=== PATIENT | male | born 1960 | race African-American/Black ===

== ENCOUNTER 2017-05-29 11:37 | Emergency (ER) | payer MEDICAID ==
[~2017-05-29] VITALS: Ht 182.9 cm; Wt 64.0 kg
[2017-05-29] MEDS ORDERED: LIDOCAINE HCL 1% 20ML VIAL (Pyxis) INJ INFIL ONE (14:30)
[2017-05-29] MEDS ORDERED: CEPHALEXIN 500MG CAPSULE PO ONE (15:15)
[2017-05-29] MEDS ORDERED: HYDROCODONE/ACETAMINOPHEN 5/325MG TABLET PO ONE (15:15)
[2017-05-29] MEDS ORDERED: SULFAMETHOXAZOLE/TRIMETHOPRIM 800/160MG TABLET PO ONE (15:15)
[2017-05-29 15:19] VITALS: BP 115/81
== END 2017-05-29 15:21 | disposition home or self-care (01) ==
LOC: ER 12:35
DX: L02.414 Cutaneous abscess of left upper limb (principal); I10 Essential (primary) hypertension; E11.9 Type 2 diabetes mellitus without complications; Z87.891 Personal history of nicotine dependence
CPT/HCPCS: 10060; 99284; J3490

== ENCOUNTER 2017-05-31 12:22 | Emergency (ER) | payer MEDICAID ==
[~2017-05-31] VITALS: Ht 182.9 cm; Wt 63.0 kg
[2017-05-31 14:40] VITALS: BP 118/84
== END 2017-05-31 18:00 | disposition left against medical advice (07) ==
LOC: ER 12:22
DX: L02.92 Furuncle, unspecified (principal); R51 Headache; Z53.21 Procedure and treatment not carried out due to patient leaving prior to being seen by health care provider

== ENCOUNTER 2023-12-02 09:55 | Emergency (ER) | payer MEDICAID ==
[~2023-12-02] VITALS: Ht 175.3 cm; Wt 68.0 kg
[~2023-12-02 09:55] MED LIST: DOXY100C5 PO
[2023-12-02 09:57] VITALS: BP 116/72; PULSE 92; RESP 16; TEMP 98.2; O2SAT 99
== END 2023-12-02 11:32 | disposition home or self-care (01) ==
LOC: ER 09:55
DX: M79.10 Myalgia, unspecified site (principal); J45.909 Unspecified asthma, uncomplicated; E11.9 Type 2 diabetes mellitus without complications
CPT/HCPCS: 99283

== ENCOUNTER 2023-12-15 13:18 | Emergency (ER) | payer MEDICAID ==
[~2023-12-15] VITALS: Ht 170.2 cm; Wt 60.0 kg
[2023-12-15 13:35] VITALS: O2SAT 99
[2023-12-15] MEDS ORDERED: MAGNESIUM/ALUMINUM HYDROXIDE/SIMETHICONE 30ML UDC PO STA (13:55)
[2023-12-15 14:25] LABS: BASOPHILS % 0.7 % (0.0-2.0); EOSINOPHILS % 1.9 % (0.0-5.0); HEMATOCRIT. 36.4 % (42.0-52.0); HEMOGLOBIN. 12.8 g/dL (14.0-18.0); LYMPHOCYTES % 38.1 % (20.0-50.0); MEAN CORPUSCULAR HEMOGLOBIN 32.2 pg (28.0-32.0); MEAN CORPUSCULAR HGB CONC 35.3 g/dL (31.0-37.0); MEAN CORPUSCULAR VOLUME 91.1 fL (80.0-94.0); MEAN PLATELET VOLUME 6.3 fl (7.4-10.4); MONOCYTES % 9.6 % (2.0-8.0); NEUTROPHILS % 49.7 % (40.0-76.0); PLATELET 306 x1000/uL (130-400); RED BLOOD CELL COUNT 3.99 mill/uL (4.7-6.1); RED CELL DISTRIBUTION WIDTH 14.4 % (11.6-14.6); WHITE BLOOD COUNT 5.2 x1000/uL (4.5-11.0)
[2023-12-15 14:31] LABS: CHLORIDE 105 mEq/L (98-107); POTASSIUM 3.2 mEq/L (3.5-5.1); SODIUM 138 mEq/L (136-145)
[2023-12-15 14:32] LABS: CARBON DIOXIDE 28 mEq/L (21-32)
[2023-12-15 14:33] LABS: CALCIUM 8.8 mg/dL (8.7-10.4)
[2023-12-15 14:37] LABS: CREATININE 0.9 mg/dL (0.6-1.3); GLUCOSE 94 mg/dL (70-105)
[2023-12-15 14:38] LABS: UREA NITROGEN BLOOD 11 mg/dL (9-23)
[2023-12-15 14:39] LABS: ALANINE AMINOTRANSFERASE 46 IU/L (10-49); ALBUMIN 4.3 g/dL (3.2-4.8); ASPARTATE AMINOTRANSFERASE 73 IU/L (<34)
[2023-12-15 14:40] LABS: BILIRUBIN TOTAL 0.5 mg/dL (0.1-1.0); PROTEIN TOTAL 6.3 g/dL (6.0-8.3)
[2023-12-15 15:36] LABS: ETHANOL BLOOD < 10 mg/dL (<10)
[2023-12-15] MEDS: POTASSIUM CHLORIDE 20MEQ/PACKET PO ONE (17:33)
[2023-12-15] MEDS: MAGNESIUM/ALUMINUM HYDROXIDE/SIMETHICONE 30ML UDC PO NR (17:33)
[2023-12-15 17:38] LABS: CLARITY URINE CLOUDY (CLEAR); COLOR URINE YELLOW (YELLOW); GLUCOSE URINE NEGATIVE (NEGATIVE); KETONES URINE NEGATIVE (NEGATIVE); LEUKOCYTE ESTERASE URINE 3+ (NEGATIVE); NITRITE URINE NEGATIVE (NEGATIVE); OCCULT BLOOD URINE NEGATIVE (NEGATIVE); PROTEIN URINE NEGATIVE (NEGATIVE); SPECIFIC GRAVITY URINE 1.011 (1.005-1.030)
[2023-12-15 17:59] LABS: BACTERIA URINE 3+; RBC URINE NONE SEEN /hpf (0-2); SQUAMOUS EPITHELIAL CELL URINE RARE /lpf (RARE/1+)
[2023-12-15] MEDS ORDERED: NITR100C MT (18:08)
[2023-12-15 18:17] VITALS: BP 148/87; PULSE 94; RESP 18; TEMP 98.7
== END 2023-12-15 18:20 | disposition home or self-care (01) ==
LOC: ER 13:18
DX: R10.30 Lower abdominal pain, unspecified (principal); N39.0 Urinary tract infection, site not specified; E87.6 Hypokalemia; J45.909 Unspecified asthma, uncomplicated; E11.9 Type 2 diabetes mellitus without complications
CPT/HCPCS: 36415; 74176; 80053; 80320; 81003; 83605; 85025; 99284; G0480

== ENCOUNTER 2023-12-27 19:51 | Emergency (ER) | payer MEDICAID ==
[~2023-12-27] VITALS: Ht 177.8 cm; Wt 74.0 kg
[2023-12-27] MEDS: ACETAMINOPHEN 325MG TABLET PO ONE (12:45)
[~2023-12-27 19:51] MED LIST changes: +NITR100C MT
[2023-12-27 20:01] VITALS: BP 126/68; PULSE 84; RESP 18; TEMP 98.2; O2SAT 98
[2023-12-27 20:48] LABS: BASOPHILS % 0.5 % (0.0-2.0); HEMATOCRIT. 36.6 % (42.0-52.0); HEMOGLOBIN. 12.5 g/dL (14.0-18.0); LYMPHOCYTES % 28.9 % (20.0-50.0); MEAN CORPUSCULAR HEMOGLOBIN 31.4 pg (28.0-32.0); MEAN CORPUSCULAR HGB CONC 34.1 g/dL (31.0-37.0); MEAN CORPUSCULAR VOLUME 92.1 fL (80.0-94.0); MEAN PLATELET VOLUME 6.6 fl (7.4-10.4); MONOCYTES % 8.3 % (2.0-8.0); NEUTROPHILS % 61.3 % (40.0-76.0); PLATELET 330 x1000/uL (130-400); RED BLOOD CELL COUNT 3.97 mill/uL (4.7-6.1); RED CELL DISTRIBUTION WIDTH 14.5 % (11.6-14.6); WHITE BLOOD COUNT 7.7 x1000/uL (4.5-11.0)
[2023-12-27 20:52] LABS: CHLORIDE 102 mEq/L (98-107); POTASSIUM 4.3 mEq/L (3.5-5.1); SODIUM 131 mEq/L (136-145)
[2023-12-27 20:53] LABS: CARBON DIOXIDE 26 mEq/L (21-32)
[2023-12-27 20:54] LABS: CALCIUM 9.5 mg/dL (8.7-10.4)
[2023-12-27 20:58] LABS: CREATININE 1.1 mg/dL (0.6-1.3); GLUCOSE 84 mg/dL (70-105); UREA NITROGEN BLOOD 12 mg/dL (9-23)
[2023-12-27 21:00] LABS: ALANINE AMINOTRANSFERASE 79 IU/L (10-49); ALBUMIN 4.6 g/dL (3.2-4.8); ASPARTATE AMINOTRANSFERASE 138 IU/L (<34)
[2023-12-27 21:01] LABS: BILIRUBIN TOTAL 0.8 mg/dL (0.1-1.0); PROTEIN TOTAL 6.9 g/dL (6.0-8.3)
[2023-12-27 23:07] LABS: CLARITY URINE CLEAR (CLEAR); COLOR URINE YELLOW (YELLOW); GLUCOSE URINE NEGATIVE (NEGATIVE); KETONES URINE NEGATIVE (NEGATIVE); LEUKOCYTE ESTERASE URINE NEGATIVE (NEGATIVE); NITRITE URINE NEGATIVE (NEGATIVE); OCCULT BLOOD URINE NEGATIVE (NEGATIVE); PH URINE 6.5 (4.5-8.0); PROTEIN URINE NEGATIVE (NEGATIVE); SPECIFIC GRAVITY URINE 1.007 (1.005-1.030); UROBILINOGEN URINE 0.2 E.U./dL (0.2-1.0)
[2023-12-28] MEDS ORDERED: POLY17PO3 MT (00:25)
== END 2023-12-28 00:51 | disposition home or self-care (01) ==
LOC: ER 19:51
DX: K59.00 Constipation, unspecified (principal); R79.89 Other specified abnormal findings of blood chemistry; E11.9 Type 2 diabetes mellitus without complications; F20.9 Schizophrenia, unspecified; J44.9 Chronic obstructive pulmonary disease, unspecified
CPT/HCPCS: 36415; 74176; 80053; 81003; 85025; 99284

== ENCOUNTER 2024-01-16 10:02 | Emergency (ER) | payer MEDICAID ==
[~2024-01-16] VITALS: Ht 177.8 cm; Wt 64.0 kg
[~2024-01-16 10:02] MED LIST changes: +POLY17PO3 MT
[2024-01-16 10:10] VITALS: O2SAT 99
[2024-01-16 10:39] LABS: BASOPHILS % 0.6 % (0.0-2.0); EOSINOPHILS % 0.7 % (0.0-5.0); HEMATOCRIT. 36.3 % (42.0-52.0); HEMOGLOBIN. 12.9 g/dL (14.0-18.0); LYMPHOCYTES % 31.8 % (20.0-50.0); MEAN CORPUSCULAR HGB CONC 35.5 g/dL (31.0-37.0); MEAN PLATELET VOLUME 6.1 fl (7.4-10.4); MONOCYTES % 7.6 % (2.0-8.0); NEUTROPHILS % 59.3 % (40.0-76.0); PLATELET 486 x1000/uL (130-400); RED BLOOD CELL COUNT 3.91 mill/uL (4.7-6.1); RED CELL DISTRIBUTION WIDTH 14.9 % (11.6-14.6); WHITE BLOOD COUNT 4.9 x1000/uL (4.5-11.0)
[2024-01-16 10:45] LABS: CHLORIDE 107 mEq/L (98-107)
[2024-01-16 10:46] LABS: CARBON DIOXIDE 27 mEq/L (21-32); SODIUM 136 mEq/L (136-145)
[2024-01-16 10:51] LABS: GLUCOSE 99 mg/dL (70-105)
[2024-01-16 10:52] LABS: INR 0.9; PROTHROMBIN TIME 10.4 sec (9.6-11.0); UREA NITROGEN BLOOD 13 mg/dL (9-23)
[2024-01-16 10:53] LABS: ALANINE AMINOTRANSFERASE 35 IU/L (10-49); ALBUMIN 4.3 g/dL (3.2-4.8); ASPARTATE AMINOTRANSFERASE 32 IU/L (<34)
[2024-01-16 10:54] LABS: BILIRUBIN DIRECT 0.2 mg/dL (<=3.0); BILIRUBIN TOTAL 0.6 mg/dL (0.1-1.0); PROTEIN TOTAL 6.4 g/dL (6.0-8.3)
[2024-01-16] MEDS ORDERED: KETOROLAC 30MG/ML VIAL IV STA (12:08)
[2024-01-16] MEDS ORDERED: LACTULOSE 20G/30ML UDC PO ONE (12:15)
[2024-01-16] MEDS: LACTULOSE 20G/30ML UDC PO NR (15:05)
[2024-01-16] MEDS: KETOROLAC 30MG/ML VIAL IV NR (15:05)
[2024-01-16 15:22] VITALS: BP 122/88; PULSE 68; RESP 17; TEMP 36.89184; O2SAT 100
[2024-01-16 15:34] LABS: CLARITY URINE CLEAR (CLEAR); COLOR URINE YELLOW (YELLOW); GLUCOSE URINE NEGATIVE (NEGATIVE); KETONES URINE NEGATIVE (NEGATIVE); LEUKOCYTE ESTERASE URINE NEGATIVE (NEGATIVE); NITRITE URINE NEGATIVE (NEGATIVE); OCCULT BLOOD URINE NEGATIVE (NEGATIVE); PROTEIN URINE NEGATIVE (NEGATIVE); SPECIFIC GRAVITY URINE 1.023 (1.005-1.030)
== END 2024-01-16 18:46 | disposition short-term general hospital (02) ==
LOC: ER 10:02 → EDBEDREQTM 12:03 → EDBEDREQ 12:03 → CANBEDREQ 16:59 → ER 18:46
DX: K56.41 Fecal impaction (principal); J45.909 Unspecified asthma, uncomplicated; E11.9 Type 2 diabetes mellitus without complications; F20.9 Schizophrenia, unspecified
CPT/HCPCS: 80076; 80048; 81003; 83690; 85025; 85610; 36415; 74176; 96374; 99285; J1885; Z7610 ×2

== ENCOUNTER 2024-01-18 18:25 | Emergency (ER) | payer MEDICAID ==
[~2024-01-18] VITALS: Ht 172.7 cm; Wt 55.0 kg
[2024-01-18 19:03] VITALS: O2SAT 100
[2024-01-18 20:54] LABS: CHLORIDE 113 mEq/L (98-107); POTASSIUM 5.1 mEq/L (3.5-5.1); SODIUM 145 mEq/L (136-145)
[2024-01-18 20:55] LABS: BASOPHILS % 0.7 % (0.0-2.0); CARBON DIOXIDE 32 mEq/L (21-32); EOSINOPHILS % 0.6 % (0.0-5.0); HEMATOCRIT. 35.7 % (42.0-52.0); LYMPHOCYTES % 31.1 % (20.0-50.0); MEAN CORPUSCULAR HEMOGLOBIN 31.5 pg (28.0-32.0); MEAN CORPUSCULAR HGB CONC 33.7 g/dL (31.0-37.0); MEAN CORPUSCULAR VOLUME 93.5 fL (80.0-94.0); MEAN PLATELET VOLUME 6.7 fl (7.4-10.4); MONOCYTES % 9.4 % (2.0-8.0); NEUTROPHILS % 58.2 % (40.0-76.0); PLATELET 409 x1000/uL (130-400); RED BLOOD CELL COUNT 3.82 mill/uL (4.7-6.1); RED CELL DISTRIBUTION WIDTH 14.9 % (11.6-14.6); WHITE BLOOD COUNT 5.6 x1000/uL (4.5-11.0)
[2024-01-18 20:56] LABS: CALCIUM 9.8 mg/dL (8.7-10.4)
[2024-01-18 21:00] LABS: CREATININE 0.9 mg/dL (0.6-1.3)
[2024-01-18 21:01] LABS: GLUCOSE 101 mg/dL (70-105); UREA NITROGEN BLOOD 15 mg/dL (9-23)
[2024-01-19 01:29] VITALS: BP 104/76; PULSE 98; RESP 13; TEMP 37.05852; O2SAT 100
== END 2024-01-19 01:30 | disposition home or self-care (01) ==
LOC: ER 18:25
DX: Z59.00 Homelessness unspecified (principal); J45.909 Unspecified asthma, uncomplicated; E11.9 Type 2 diabetes mellitus without complications; F20.9 Schizophrenia, unspecified
CPT/HCPCS: 36415; 80048; 85025; 99283

== ENCOUNTER 2024-01-22 07:22 | Emergency (ER) | payer MEDICAID ==
[~2024-01-22] VITALS: Ht 177.8 cm; Wt 64.0 kg
[2024-01-22 07:32] VITALS: O2SAT 96
[2024-01-22 08:09] LABS: BASOPHILS % 0.4 % (0.0-2.0); EOSINOPHILS % 0.6 % (0.0-5.0); HEMOGLOBIN. 11.9 g/dL (14.0-18.0); MEAN CORPUSCULAR VOLUME 94.1 fL (80.0-94.0); MEAN PLATELET VOLUME 6.5 fl (7.4-10.4); MONOCYTES % 8.8 % (2.0-8.0); NEUTROPHILS % 64.2 % (40.0-76.0); PLATELET 365 x1000/uL (130-400); RED BLOOD CELL COUNT 3.72 mill/uL (4.7-6.1); RED CELL DISTRIBUTION WIDTH 15.3 % (11.6-14.6); WHITE BLOOD COUNT 7.9 x1000/uL (4.5-11.0)
[2024-01-22 08:12] LABS: CHLORIDE 107 mEq/L (98-107); POTASSIUM 4.5 mEq/L (3.5-5.1); SODIUM 142 mEq/L (136-145)
[2024-01-22 08:13] LABS: CARBON DIOXIDE 31 mEq/L (21-32)
[2024-01-22 08:14] LABS: CALCIUM 9.4 mg/dL (8.7-10.4)
[2024-01-22 08:18] LABS: CREATININE 0.7 mg/dL (0.6-1.3); GLUCOSE 89 mg/dL (70-105); UREA NITROGEN BLOOD 17 mg/dL (9-23)
[2024-01-22 08:19] LABS: TROPONIN I HIGH SENSITIVITY 31 ng/L (3.0-53)
[2024-01-22 08:36] LABS: CLARITY URINE CLEAR (CLEAR); COLOR URINE YELLOW (YELLOW); GLUCOSE URINE NEGATIVE (NEGATIVE); KETONES URINE NEGATIVE (NEGATIVE); LEUKOCYTE ESTERASE URINE NEGATIVE (NEGATIVE); NITRITE URINE NEGATIVE (NEGATIVE); OCCULT BLOOD URINE NEGATIVE (NEGATIVE); PROTEIN URINE 1+ (NEGATIVE); SPECIFIC GRAVITY URINE 1.029 (1.005-1.030)
[2024-01-22 08:45] LABS: *AMPHETAMINES SCREEN URINE NEGATIVE (NEGATIVE); *BARBITURATES SCREEN URINE NEGATIVE (NEGATIVE); *BENZODIAZEPINES SCREEN URINE NEGATIVE (NEGATIVE); *COCAINE SCREEN URINE NEGATIVE (NEGATIVE); CANNABINOID URINE SCREEN NEGATIVE (NEGATIVE); ECSTASY MDMA SCREEN URINE NEGATIVE (NEGATIVE); METHADONE URINE SCREEN NEGATIVE (NEGATIVE); OPIATES URINE SCREEN NEGATIVE (NEGATIVE); PHENCYCLIDINE URINE SCREEN NEGATIVE (NEGATIVE)
[2024-01-22 08:59] LABS: BACTERIA URINE RARE; RBC URINE NONE SEEN /hpf (0-2); SQUAMOUS EPITHELIAL CELL URINE FEW /lpf (RARE/1+); WBC URINE 0-2 /hpf (0-2); YEAST URINE NONE SEEN
[2024-01-22] MEDS ORDERED: AZIT500T8 MT (10:18)
[2024-01-22] MEDS ORDERED: ALBU18HF2 IH (10:18)
[2024-01-22] MEDS ORDERED: AMOX1TAB16 MT (10:18)
[2024-01-22] MEDS ORDERED: P20 MT (10:18)
[2024-01-22] MEDS ORDERED: ATROV INH (10:18)
[2024-01-22 10:37] VITALS: BP 132/72; PULSE 106; RESP 20; TEMP 36.66960; O2SAT 97
== END 2024-01-22 10:39 | disposition home or self-care (01) ==
LOC: ER 07:22
DX: J45.901 Unspecified asthma with (acute) exacerbation (principal); J18.9 Pneumonia, unspecified organism; E11.9 Type 2 diabetes mellitus without complications; F20.9 Schizophrenia, unspecified
CPT/HCPCS: 36415; 71045; 80048; 80305; 81003; 84484; 85025; 93005; 99285

== ENCOUNTER 2024-01-28 10:21 | Emergency (ER) | payer MEDICAID ==
[~2024-01-28] VITALS: Ht 170.2 cm; Wt 53.0 kg
[~2024-01-28 10:21] MED LIST changes: +ALBU18HF2 IH; +AMOX1TAB16 MT; +ATROV INH; +AZIT500T8 MT; +P20 MT
[2024-01-28 10:33] VITALS: O2SAT 99
[2024-01-28 10:50] LABS: BASOPHILS % 0.5 % (0.0-2.0); EOSINOPHILS % 0.8 % (0.0-5.0); HEMATOCRIT. 40.3 % (42.0-52.0); HEMOGLOBIN. 13.8 g/dL (14.0-18.0); LYMPHOCYTES % 29.4 % (20.0-50.0); MEAN CORPUSCULAR HEMOGLOBIN 32.1 pg (28.0-32.0); MEAN CORPUSCULAR HGB CONC 34.1 g/dL (31.0-37.0); MEAN CORPUSCULAR VOLUME 94.1 fL (80.0-94.0); MEAN PLATELET VOLUME 6.2 fl (7.4-10.4); MONOCYTES % 8.9 % (2.0-8.0); NEUTROPHILS % 60.4 % (40.0-76.0); PLATELET 332 x1000/uL (130-400); RED BLOOD CELL COUNT 4.29 mill/uL (4.7-6.1); RED CELL DISTRIBUTION WIDTH 15.5 % (11.6-14.6); WHITE BLOOD COUNT 6.5 x1000/uL (4.5-11.0)
[2024-01-28 11:02] LABS: CHLORIDE 106 mEq/L (98-107); POTASSIUM 4.4 mEq/L (3.5-5.1); SODIUM 139 mEq/L (136-145)
[2024-01-28 11:03] LABS: CALCIUM 8.9 mg/dL (8.7-10.4); CARBON DIOXIDE 29 mEq/L (21-32)
[2024-01-28 11:04] LABS: CLARITY URINE CLEAR (CLEAR); COLOR URINE YELLOW (YELLOW); GLUCOSE URINE NEGATIVE (NEGATIVE); KETONES URINE NEGATIVE (NEGATIVE); LEUKOCYTE ESTERASE URINE NEGATIVE (NEGATIVE); NITRITE URINE NEGATIVE (NEGATIVE); OCCULT BLOOD URINE NEGATIVE (NEGATIVE); PH URINE 7.5 (4.5-8.0); PROTEIN URINE NEGATIVE (NEGATIVE); SPECIFIC GRAVITY URINE 1.013 (1.005-1.030)
[2024-01-28 11:08] LABS: CREATININE 0.9 mg/dL (0.6-1.3); GLUCOSE 109 mg/dL (70-105); UREA NITROGEN BLOOD 13 mg/dL (9-23)
[2024-01-28 11:41] VITALS: BP 138/84; PULSE 100; RESP 18; TEMP 36.89184; O2SAT 99
== END 2024-01-28 11:50 | disposition home or self-care (01) ==
LOC: ER 10:42
DX: Z00.00 Encounter for general adult medical examination without abnormal findings (principal); J44.9 Chronic obstructive pulmonary disease, unspecified; E11.9 Type 2 diabetes mellitus without complications; F20.9 Schizophrenia, unspecified; Z79.899 Other long term (current) drug therapy
CPT/HCPCS: 36415; 80048; 81003; 85025; 99283

== ENCOUNTER 2024-03-27 19:01 | Emergency (ER) | payer MEDICAID ==
[~2024-03-27] VITALS: Ht 177.8 cm; Wt 61.2 kg
[2024-03-27 19:15] VITALS: TEMP 97.7; O2SAT 98
[2024-03-27 20:00] LABS: BASOPHILS % 0.2 % (0.0-2.0); EOSINOPHILS % 0.4 % (0.0-5.0); HEMATOCRIT. 36.1 % (42.0-52.0); HEMOGLOBIN. 12.5 g/dL (14.0-18.0); LYMPHOCYTES % 26.5 % (20.0-50.0); MEAN CORPUSCULAR HEMOGLOBIN 32.1 pg (28.0-32.0); MEAN CORPUSCULAR HGB CONC 34.5 g/dL (31.0-37.0); MONOCYTES % 12.6 % (2.0-8.0); NEUTROPHILS % 60.3 % (40.0-76.0); PLATELET 191 x1000/uL (130-400); RED BLOOD CELL COUNT 3.88 mill/uL (4.7-6.1); RED CELL DISTRIBUTION WIDTH 14.7 % (11.6-14.6); WHITE BLOOD COUNT 5.5 x1000/uL (4.5-11.0)
[2024-03-27 20:06] LABS: CHLORIDE 108 mEq/L (98-107); POTASSIUM 3.9 mEq/L (3.5-5.1); SODIUM 142 mEq/L (136-145)
[2024-03-27 20:07] LABS: CARBON DIOXIDE 29 mEq/L (21-32)
[2024-03-27 20:08] LABS: CALCIUM 9.4 mg/dL (8.7-10.4)
[2024-03-27 20:12] LABS: CREATININE 1.1 mg/dL (0.6-1.3); GLUCOSE 105 mg/dL (70-105)
[2024-03-27 20:13] LABS: UREA NITROGEN BLOOD 24 mg/dL (9-23)
[2024-03-27] MEDS: KETOROLAC 15MG/ML VIAL IM ONE (22:09)
[2024-03-27] MEDS ORDERED: LIDO700A15 TP (22:10)
[2024-03-27] MEDS ORDERED: NAPR-1176 MT (22:10)
[2024-03-27 22:27] VITALS: BP 134/66; PULSE 67; RESP 18; O2SAT 98
== END 2024-03-27 22:31 | disposition home or self-care (01) ==
LOC: ER 19:01
DX: M25.562 Pain in left knee (principal); Z79.899 Other long term (current) drug therapy; Z86.59 Personal history of other mental and behavioral disorders; W18.30XA Fall on same level, unspecified, initial encounter; Y93.01 Activity, walking, marching and hiking; Y92.89 Other specified places as the place of occurrence of the external cause; Y99.8 Other external cause status
CPT/HCPCS: 99285; 80048; 85025; 36415; 73562; 93005; 96372; J1885

== ENCOUNTER 2025-02-14 08:30 | Emergency (ER) | payer MEDICAID, OTHER ==
[~2025-02-14] VITALS: Ht 172.7 cm; Wt 58.0 kg
[~2025-02-14 08:30] MED LIST changes: +LIDO-53 TP; +NAPR-1176 MT
[2025-02-14 08:37] VITALS: O2SAT 99
[2025-02-14 10:03] LABS: BASOPHILS % 0.5 % (0.0-2.0); EOSINOPHILS % 2.1 % (0.0-5.0); HEMATOCRIT. 35.1 % (42.0-52.0); HEMOGLOBIN. 11.8 g/dL (14.0-18.0); LYMPHOCYTES % 17.8 % (20.0-50.0); MEAN PLATELET VOLUME 6.6 fl (7.4-10.4); MONOCYTES % 8.4 % (2.0-8.0); NEUTROPHILS % 71.2 % (40.0-76.0); PLATELET 310 x1000/uL (130-400); RED BLOOD CELL COUNT 3.81 mill/uL (4.7-6.1); RED CELL DISTRIBUTION WIDTH 15.7 % (11.6-14.6)
[2025-02-14 10:19] LABS: INR 0.9
[2025-02-14 10:24] LABS: CREATININE 0.9 mg/dL (0.6-1.3); ETHANOL BLOOD < 10 mg/dL (<10); UREA NITROGEN BLOOD 14 mg/dL (9-23)
[2025-02-14 10:25] LABS: TROPONIN I HIGH SENSITIVITY 30 ng/L (3.0-53)
[2025-02-14 10:26] LABS: ASPARTATE AMINOTRANSFERASE 53 IU/L (<34); BILIRUBIN DIRECT 0.1 mg/dL (<=3.0); BILIRUBIN TOTAL 0.3 mg/dL (0.1-1.0); PROTEIN TOTAL 6.9 g/dL (6.0-8.3)
[2025-02-14] MEDS: OLANZAPINE 5MG TABLET ODT PO ONE (11:21)
[2025-02-14 11:37] LABS: CLARITY URINE CLEAR (CLEAR); COLOR URINE YELLOW (YELLOW); GLUCOSE URINE NEGATIVE (NEGATIVE); KETONES URINE TRACE (NEGATIVE); LEUKOCYTE ESTERASE URINE NEGATIVE (NEGATIVE); NITRITE URINE NEGATIVE (NEGATIVE); OCCULT BLOOD URINE NEGATIVE (NEGATIVE); PH URINE 5.5 (4.5-8.0); PROTEIN URINE NEGATIVE (NEGATIVE); SPECIFIC GRAVITY URINE 1.017 (1.005-1.030); UROBILINOGEN URINE 0.2 E.U./dL (0.2-1.0)
[2025-02-14 12:22] LABS: *AMPHETAMINES SCREEN URINE NEGATIVE (NEGATIVE); *BARBITURATES SCREEN URINE NEGATIVE (NEGATIVE); *BENZODIAZEPINES SCREEN URINE NEGATIVE (NEGATIVE); *COCAINE SCREEN URINE NEGATIVE (NEGATIVE); CANNABINOID URINE SCREEN NEGATIVE (NEGATIVE); ECSTASY MDMA SCREEN URINE NEGATIVE (NEGATIVE); METHADONE URINE SCREEN NEGATIVE (NEGATIVE); OPIATES URINE SCREEN NEGATIVE (NEGATIVE); PHENCYCLIDINE URINE SCREEN NEGATIVE (NEGATIVE)
[2025-02-14 14:12] VITALS: BP 122/80; PULSE 89; RESP 16; TEMP 36.6; O2SAT 99
[2025-02-14] MEDS ORDERED: IOHEXOL-350 100 ML BOTTLE ONE (15:10)
== END 2025-02-14 14:34 | disposition home or self-care (01) ==
LOC: ER 08:30
DX: D64.9 Anemia, unspecified (principal); E11.9 Type 2 diabetes mellitus without complications; F20.9 Schizophrenia, unspecified; F31.9 Bipolar disorder, unspecified; Z20.822 Contact with and (suspected) exposure to COVID-19; Z79.899 Other long term (current) drug therapy; Z98.890 Other specified postprocedural states
CPT/HCPCS: 99285; 71275; 71045; 87426; 80076; 80305; 80048; 81003; 83605; 85025; 85379; 85610; 85730; 87040; 87086; 84484; 36415; 84145; 93005; G0480; Q9967; 80320

== ENCOUNTER 2025-02-21 12:11 | Emergency (ER) | payer OTHER ==
[~2025-02-21] VITALS: Ht 170.2 cm; Wt 68.0 kg
[2025-02-21 12:25] VITALS: O2SAT 100
[2025-02-21] MEDS ORDERED: OFLO5DRO4 RIGHT EAR (14:58)
[2025-02-21 15:09] VITALS: BP 109/68; PULSE 82; RESP 18; TEMP 37.2; O2SAT 100
== END 2025-02-21 15:15 | disposition home or self-care (01) ==
LOC: ER 12:11
DX: H60.90 Unspecified otitis externa, unspecified ear (principal); F31.9 Bipolar disorder, unspecified; F20.9 Schizophrenia, unspecified
CPT/HCPCS: 99283